=== PATIENT | male | born 1995 | race Two or more races ===

== ENCOUNTER 2018-04-07 09:00 | Outpatient (CLI) | payer OTHER ==
[~2018-04-07 09:00] MED LIST: METADATE CD30 MG PO; [UNRECOGNIZED DRUG - OTHER] PO
== END 2018-04-07 09:10 | disposition home or self-care (01) ==
LOC: RAD 09:00
DX: R07.89 Other chest pain (principal)

== ENCOUNTER 2019-03-02 12:58 | Outpatient (CLI) | payer OTHER | END 2019-03-02 12:59 | disposition home or self-care (01) | LOC: RAD 12:58 | DX: R07.89 Other chest pain (principal) ==